=== PATIENT | female | born 1975 | race Two or more races ===

== ENCOUNTER 2022-12-17 09:18 | Emergency (ER) | payer OTHER ==
[~2022-12-17] VITALS: Ht 160 cm; Wt 56.7 kg
[2022-12-17] MEDS ORDERED: METOPROLOL SUCC25 MG (09:26)
== END 2022-12-17 15:59 | disposition home or self-care (01) ==
LOC: ER 09:18
DX: M19.90 Unspecified osteoarthritis, unspecified site (principal); E03.9 Hypothyroidism, unspecified

== ENCOUNTER 2022-12-17 22:25 | Emergency (ER) | payer OTHER ==
[~2022-12-17] VITALS: Ht 160 cm; Wt 56.7 kg
[~2022-12-17 22:25] MED LIST: METOPROLOL SUCC25 MG
== END 2022-12-18 01:55 | disposition home or self-care (01) ==
LOC: ER 22:25
DX: M77.8 Other enthesopathies, not elsewhere classified (principal)

== ENCOUNTER 2023-05-16 20:37 | Emergency (ER) | payer OTHER ==
[~2023-05-16] VITALS: Ht 167.6 cm; Wt 76.2 kg
[2023-05-16 21:35] LABS: HEMATOCRIT 33.6 % (36.0-45.00); HEMOGLOBIN 11.5 g/dL (12.0-15.00); MEAN CELL VOLUME 82.2 fL (80.00-100.00); MEAN CORPUSCULAR HEMOGLOBIN 28.3 pg (27.00-32.0); MEAN CORPUSCULAR HGB CONC 34.4 g/dl (32.0-36.0); PLATELET COUNT 238 K/uL (150-450); RED BLOOD COUNT 4.08 M/uL (4.00-6.00); RED CELL DISTRIBUTION WIDTH 14.5 % (11.5-14.5)
[2023-05-16 21:53] LABS: CALCIUM 8.9 mg/dL (8.5-10.1); CREATININE SERUM 0.75 mg/dL (0.55-1.02); GFR 82.83; POTASSIUM 3.71 mEq/L (3.5-5.1)
[2023-05-16 21:59] LABS: URINE APPEARANCE Turbid; URINE BILIRRUBIN Negative (NEGATIVE); URINE BLOOD Moderate; URINE COLOR Dark Yellow; URINE GLUCOSE Negative (NEGATIVE); URINE LEUKOCYTE Large; URINE NITRATE Positive; URINE PROTEIN 30 (NEGATIVE)
[2023-05-16 22:02] LABS: URINE EPITHELIAL CELLS 17.9 uL (0.0-38.8); URINE RBC 32.6 uL (0.0-20.8); URINE WBC 3411.5 uL (0.0-23.2)
[2023-05-16 22:22] LABS: URINE BACTERIA > 9821.5 uL (0.0-1933)
[2023-05-16] MEDS ORDERED: CEFTRIAXONE SODIUM 1,000 MG VIAL IM STA (22:26)
[2023-05-16] MEDS ORDERED: KETOROLAC TROMETHAMINE 30 MG VIAL IM STA (22:27)
== END 2023-05-16 22:58 | disposition home or self-care (01) ==
LOC: ER 20:37
PROVIDERS: General Practice
DX: N39.0 Urinary tract infection, site not specified (principal)